=== PATIENT | male | born 1955 | race Caucasian/White ===

== ENCOUNTER 2018-10-02 08:25 | Outpatient (CLI) | payer MEDICARE ==
--- NOTE | 2018-10-02 09:45 | ULT ---
ULTRASOUND ABDOMINAL AORTA: DATE: 10/01/2018. HISTORY: Screening evaluation for abdominal aortic aneurysm. FINDINGS: The proximal abdominal aorta is obscured by shadowing from bowel gas. The proximal abdominal aorta i s obscured by shadowing from bowel gas and is unable to be evaluated. The visualized portions of the mid and distal abdominal aorta are normal in caliber without evidence of an abdominal aortic aneurys m. Maximal dimension of the mid abdominal aorta in transverse dimensions measures 2.5 cm with kia l dimension distal abdominal aorta of 2 cm. No periaortic fluid collection is seen just to the visua lized portions of the abdominal aorta. Doppler evaluation does demonstrate arterial waveform in the abdominal aorta. The aortic bifurcation is obscured. Color flow evaluation does demonstrate flow within the most prox imal visualized common iliac arteries, although diameters are difficult to evaluate. IMPRESSION: Limited evaluation due to nonvisualization of the proximal and most distal abdominal aorta due to sha dowing from bowel gas. Portions of the distal abdominal aorta as well as the mid abdominal aorta are visualized and are normal in caliber without evidence of an abdominal aortic aneurysm. POS: MICHELLE
== END 2018-10-02 08:26 | disposition home or self-care (01) ==
LOC: SCSULT 08:25
PROVIDERS: ATTEND Family Medicine
DX: Z13.6 Encounter for screening for cardiovascular disorders (principal); Z00.00 Encounter for general adult medical examination without abnormal findings
CPT/HCPCS: 76775

== ENCOUNTER 2024-07-26 11:02 | Outpatient (CLI) | payer MEDICARE | END 2024-07-26 11:03 | disposition home or self-care (01) | LOC: SCSMRI 11:02 | PROVIDERS: ATTEND Psychiatry & Neurology Neurology | DX: G20.C Parkinsonism, unspecified (principal); J32.0 Chronic maxillary sinusitis; G93.9 Disorder of brain, unspecified | CPT/HCPCS: 70551 ==